=== PATIENT | male | born 1970 | race African-American/Black ===

== ENCOUNTER 2017-06-16 10:01 | Inpatient (IN) | payer MEDICAID ==
[~2017-06-16] VITALS: Ht 172.7 cm; Wt 92.5 kg
[2017-06-16] VITALS (23 sets, daily range): BP systolic 102–125; BP diastolic 49–84
[2017-06-16] MEDS ORDERED: EPINEPHRINE 0.1MG/ML (1:10,000) 10ML SYR ONE ×2 (10:29→10:41)
[2017-06-16] MEDS ORDERED: AMIODARONE HCL 900 MG in DEXT 5% WATER 500 ML IV ONE (10:30)
[2017-06-16] MEDS ORDERED: ASPIRIN 300MG SUPP PR ONE (10:30)
[2017-06-16 10:34] LABS: CHLORIDE 99 mEq/L (98-107)
[2017-06-16 10:42] LABS: CARBON DIOXIDE 15 mEq/L (21-32); TROPONIN I 0.02 ng/mL (0.00-0.04)
[2017-06-16] MEDS ORDERED: KCL 10MEQ/50ML PREMIX 50 ML IV ONE ×2 (10:56→13:15)
[2017-06-16] MEDS ORDERED: FENTANYL CITRATE/PF 50MCG/ML 2ML VIAL ONE (10:57)
[2017-06-16] MEDS ORDERED: VASOPRESSIN 20 UNIT/ML 1ML IV SCH (11:00)
[2017-06-16] MEDS ORDERED: FENTANYL CITRATE/PF 500 MCG in SODIUM CHLORIDE 0.9% 40 ML IV PRN ×3 (11:15→11:45)
[2017-06-16] MEDS ORDERED: MIDAZOLAM HCL 50 MG in DEXTROSE 5% WATER 40 ML IV ONE ×2 (11:15→11:30)
[2017-06-16] MEDS ORDERED: AMIODARONE HCL 50MG/ML 3ML VIAL IV ONE (11:30)
[2017-06-16] MEDS ORDERED: LIDOCAINE HCL 2% 5ML SYRINGE IV ONE (11:30)
[2017-06-16] MEDS ORDERED: MAGNESIUM SULFATE 4G IN WATER 100ML PREMIX IV ONE (11:30)
[2017-06-16] MEDS ORDERED: CALCIUM CHLORIDE 1GM/10ML SYR IV ONE (11:30)
[2017-06-16] MEDS ORDERED: SODIUM BICARBONATE 7.5% 0.9 MEQ/ML 50ML SYR IV ONE (11:30)
[2017-06-16] MEDS ORDERED: MIDAZOLAM HCL 2 MG/2 ML VIAL IV ONE (11:30)
[2017-06-16] MEDS ORDERED: MIDAZOLAM HCL 2 MG/2 ML VIAL ONE (11:33)
[2017-06-16 11:39] LABS: BASOPHILS % 0.5 % (0.0-2.0); EOSINOPHILS % 2.3 % (0.0-5.0); HEMATOCRIT. 42.2 % (42.0-52.0); HEMOGLOBIN. 13.8 g/dL (14.0-18.0); MEAN CORPUSCULAR HEMOGLOBIN 28.2 pg (28.0-32.0); MEAN CORPUSCULAR VOLUME 85.9 fL (80.0-94.0); MEAN PLATELET VOLUME 8.1 fl (7.4-10.4); MONOCYTES % 2.9 % (2.0-8.0); NEUTROPHILS % 61.3 % (40.0-76.0); PLATELET 114 x1000/uL (130-400); RED BLOOD CELL COUNT 4.91 mill/uL (4.7-6.1); RED CELL DISTRIBUTION WIDTH 13.9 % (11.6-14.6)
[2017-06-16] MEDS ORDERED: IPRATROPIUM/ALBUTEROL 0.5-3(2.5)MG/3ML NEB HHN PRN (11:45)
[2017-06-16] MEDS ORDERED: MIDAZOLAM HCL 100 MG in DEXT 5% WATER 80 ML IV PRN (11:45)
[2017-06-16 11:48] LABS: INR 1.3; PROTHROMBIN TIME 13.7 sec (9.4-11.6)
[2017-06-16 12:00] LABS: T4 FREE 0.79 ng/dL (0.76-1.46)
[2017-06-16 12:29] LABS: BG BASE EXCESS -11.4 mmol/L (-2.0-2.0); BG DEOXYHEMOGLOBIN 0.6 % (0.0-5.0); BG FRACTION INSPIRED OXYGEN 100; BG HCO3 ACT 16.3 mmol/L (22.0-26.0); BG METHEMOGLOBIN 0.5 % (0.0-1.5); BG OXYGEN SATURATION 99.4 % (92.0-98.5); BG OXYHEMOGLOBIN 98.9 % (94.0-97.0); BG PCO2 43.2 mmHg (35.0-45.0); BG PH 7.195 (7.350-7.450); BG PO2 354.2 mmHg (75.0-100.0); BG SAMPLE SITE RIGHT RADIAL; BG TIDAL VOLUME(mL) 600 mL; BG VENT MODE VENT - A/C; BG VENT RATE 12 set
[2017-06-16] MEDS ORDERED: FENTANYL CITRATE/PF 50MCG/ML 2ML VIAL IV ONE (13:15)
[2017-06-16 13:29] LABS: D-DIMER > 35.20 mg/L FEU (<0.50)
[2017-06-16] MEDS ORDERED: POTASSIUM CHLORIDE INJ 40 MEQ in DEXT 5% WATER 250 ML IV SCH (13:30)
[2017-06-16] MEDS ORDERED: BLOOD SUGAR DIAGNOSTIC STRIP TEST SCH (13:30)
[2017-06-16] MEDS ORDERED: SODIUM BICARBONATE 8.4% 1 MEQ/ML 50ML SYR IV SCH (13:30)
[2017-06-16] MEDS ORDERED: DEXTROSE 50% WATER 50ML SYRINGE IV PRN ×4 (13:30→14:30)
[2017-06-16] MEDS ORDERED: INSULIN REGULAR (DRIP) 100 UNITS in SODIUM CHLORIDE 0.9% 100 ML IV SCH (14:23)
[2017-06-16 14:38] LABS: CREATINE KINASE MB FRACTION 27.3 ng/mL (0.5-3.6)
[2017-06-16 14:42] LABS: CARCINO EMBRYONIC ANTIGEN 2.4 ng/ml
[2017-06-16 14:44] LABS: PROSTRATE SPECIFIC AG TOTAL 1.69 ng/mL (0.0-4.0)
[2017-06-16] MEDS ORDERED: HEPARIN 5000 UNITS/ML VIAL IV NR (15:00)
[2017-06-16] MEDS: BLOOD SUGAR DIAGNOSTIC STRIP TEST SCH ×8 (15:00→23:57)
[2017-06-16] MEDS ORDERED: HEPARIN 5000 UNITS/ML VIAL IV PRN ×2 (15:00)
[2017-06-16] MEDS: METRONIDAZOLE 500 MG PREMIX 100 ML IV SCH ×2 (15:48→23:57)
[2017-06-16] MEDS: INSULIN REGULAR (DRIP) 100 UNITS in SODIUM CHLORIDE 0.9% 100 ML IV SCH ×2 (15:51→22:36)
[2017-06-16] MEDS: DEXT 5%/0.45% NACL KCL 20MEQ/L 1,000 ML IV SCH (15:54)
[2017-06-16 16:33] LABS: CLARITY URINE CLOUDY (CLEAR); COLOR URINE ORANGE (YELLOW); GLUCOSE URINE 3+ (NEGATIVE); KETONES URINE TRACE (NEGATIVE); LEUKOCYTE ESTERASE URINE NEGATIVE (NEGATIVE); NITRITE URINE NEGATIVE (NEGATIVE); OCCULT BLOOD URINE 3+ (NEGATIVE); PH URINE 5.5 (4.5-8.0); PROTEIN URINE 3+ (NEGATIVE); UROBILINOGEN URINE 0.2 E.U./dL (0.2-1.0)
[2017-06-16 16:34] LABS: BG CARBOXYHEMOGLOBIN 0.4 % (0.5-1.5); BG DEOXYHEMOGLOBIN 2.3 % (0.0-5.0); BG FRACTION INSPIRED OXYGEN 50; BG HCO3 ACT 15.5 mmol/L (22.0-26.0); BG METHEMOGLOBIN 0.2 % (0.0-1.5); BG OXYGEN SATURATION 97.7 % (92.0-98.5); BG OXYHEMOGLOBIN 97.1 % (94.0-97.0); BG PCO2 33.5 mmHg (35.0-45.0); BG PH 7.283 (7.350-7.450); BG PO2 106.2 mmHg (75.0-100.0); BG SAMPLE SITE LEFT RADIAL; BG TIDAL VOLUME(mL) 600 mL; BG TOTAL HEMOGLOBIN 15.3 g/dL (12.0-18.0); BG VENT MODE VENT - A/C; BG VENT RATE 12 set
[2017-06-16 16:46] LABS: *AMPHETAMINES SCREEN URINE NEGATIVE (NEGATIVE); *BARBITURATES SCREEN URINE NEGATIVE (NEGATIVE); *BENZODIAZEPINES SCREEN URINE PRESUMTIVE POSITIVE (NEGATIVE); *COCAINE SCREEN URINE NEGATIVE (NEGATIVE); CANNABINOID URINE SCREEN NEGATIVE (NEGATIVE); METHADONE URINE SCREEN NEGATIVE (NEGATIVE); OPIATES URINE SCREEN NEGATIVE (NEGATIVE); PHENCYCLIDINE URINE SCREEN NEGATIVE (NEGATIVE)
[2017-06-16] MEDS ORDERED: IOHEXOL-350 100 ML BOTTLE ONE (17:40)
[2017-06-16] MEDS: HEPARIN 25,000 UNITS PREMIX 500 ML IV PRN (18:28)
[2017-06-16] MEDS: CEFEPIME 2,000 MG in DEXT 5% WATER 100 ML IV SCH (18:29)
[2017-06-16] MEDS: MIDAZOLAM HCL 100 MG in DEXT 5% WATER 80 ML IV PRN (19:39)
[2017-06-16] MEDS: FENTANYL CITRATE/PF 500 MCG in SODIUM CHLORIDE 0.9% 40 ML IV PRN (19:40)
[2017-06-16 22:55] LABS: CREATINE KINASE MB FRACTION 51.4 ng/mL (0.5-3.6)
[2017-06-17] VITALS (70 sets, daily range): BP systolic 88–125; BP diastolic 50–78
[2017-06-17] MEDS: BLOOD SUGAR DIAGNOSTIC STRIP TEST SCH ×23 (01:00→23:00)
[2017-06-17] MEDS: CEFEPIME 2,000 MG in DEXT 5% WATER 100 ML IV SCH ×2 (04:22→21:24)
[2017-06-17] MEDS: INSULIN REGULAR (DRIP) 100 UNITS in SODIUM CHLORIDE 0.9% 100 ML IV SCH (04:24)
[2017-06-17] MEDS: IPRATROPIUM/ALBUTEROL 0.5-3(2.5)MG/3ML NEB HHN SCH ×4 (04:45→20:03)
[2017-06-17] MEDS: FENTANYL CITRATE/PF 500 MCG in SODIUM CHLORIDE 0.9% 40 ML IV PRN ×2 (06:17→19:47)
[2017-06-17] MEDS: MIDAZOLAM HCL 100 MG in DEXT 5% WATER 80 ML IV PRN ×2 (06:19→21:58)
[2017-06-17] MEDS: METRONIDAZOLE 500 MG PREMIX 100 ML IV SCH ×2 (07:09→20:15)
[2017-06-17 07:15] LABS: CREATINE KINASE MB FRACTION 46.6 ng/mL (0.5-3.6)
[2017-06-17 07:40] LABS: INR 1.3; PROTHROMBIN TIME 13.4 sec (9.4-11.6)
[2017-06-17 07:44] LABS: PARTIAL THROMBOPLASTIN TIME > 200.0 sec (23.4-31.0)
[2017-06-17 08:03] LABS: BG BASE EXCESS -5.1 mmol/L (-2.0-2.0); BG CARBOXYHEMOGLOBIN 0.5 % (0.5-1.5); BG DEOXYHEMOGLOBIN 0.7 % (0.0-5.0); BG FRACTION INSPIRED OXYGEN 50; BG HCO3 ACT 21.2 mmol/L (22.0-26.0); BG METHEMOGLOBIN 0.5 % (0.0-1.5); BG OXYGEN SATURATION 99.3 % (92.0-98.5); BG OXYHEMOGLOBIN 98.3 % (94.0-97.0); BG PCO2 43.8 mmHg (35.0-45.0); BG PH 7.302 (7.350-7.450); BG PO2 183.9 mmHg (75.0-100.0); BG SAMPLE SITE LEFT RADIAL; BG TIDAL VOLUME(mL) 600 mL; BG TOTAL HEMOGLOBIN 14.2 g/dL (12.0-18.0); BG VENT MODE VENT - A/C; BG VENT RATE 12 set
[2017-06-17] MEDS: BUDESONIDE 0.5MG/2ML NEB HHN SCH (08:05)
[2017-06-17] MEDS: DEXT 5%/0.45% NACL KCL 20MEQ/L 1,000 ML IV SCH (08:32)
[2017-06-17] MEDS: PANTOPRAZOLE SODIUM 40 MG/VIAL IV SCH (08:33)
[2017-06-17 09:12] LABS: HEMOGLOBIN. 14.6 g/dL (14.0-18.0); MEAN CORPUSCULAR HEMOGLOBIN 28.3 pg (28.0-32.0); MEAN CORPUSCULAR VOLUME 83.1 fL (80.0-94.0); PLATELET 114 x1000/uL (130-400); RED BLOOD CELL COUNT 5.17 mill/uL (4.7-6.1)
[2017-06-17] MEDS ORDERED: SODIUM BICARBONATE 4% (2.4MEQ) 5ML VIAL IV ONE (09:18)
[2017-06-17] MEDS ORDERED: LIDOCAINE HCL 1% 20ML VIAL (Pyxis) INJ ONE ×2 (09:18→13:54)
[2017-06-17] MEDS ORDERED: HEPARIN 1000 UNITS/ML 10ML ONE (09:19)
[2017-06-17 09:21] LABS: PHOSPHORUS 2.5 mg/dL (2.5-4.9)
[2017-06-17 13:46] LABS: NUCLEATED RED BLOOD CELLS 1 /100 WBC; PLATELET ESTIMATE DECREASED
[2017-06-17] MEDS ORDERED: ALTEPLASE 2MG/VIAL ITC ONE (14:00)
[2017-06-17] MEDS ORDERED: ALTEPLASE 10 MG in SODIUM CHLORIDE 0.9% 250 ML IV SCH ×4 (14:15)
[2017-06-17] MEDS ORDERED: ACETAMINOPHEN 325MG TABLET PO PRN (15:00)
[2017-06-17] MEDS ORDERED: ATROPINE SULFATE 1MG/10ML SYR IV PRN (15:00)
[2017-06-17] MEDS: SODIUM BICARBONATE 100 MEQ in DEXTROSE 5% WATER 1,000 ML IV SCH (16:30)
[2017-06-17 17:20] LABS: HEMATOCRIT 41.2 % (42.0-52.0); HEMOGLOBIN 13.9 g/dL (14.0-18.0)
[2017-06-17] MEDS: AMIODARONE HCL 900 MG in DEXT 5% WATER 482 ML IV PRN (17:36)
[2017-06-17] MEDS: ACETYLCYSTEINE 200MG/ML 20% VIAL 4ML NG SCH (17:54)
[2017-06-17 18:33] LABS: CARBON DIOXIDE 20 mEq/L (21-32); CHLORIDE 109 mEq/L (98-107)
[2017-06-17 18:47] LABS: CLARITY URINE CLOUDY (CLEAR); COLOR URINE RED (YELLOW); GLUCOSE URINE TRACE (NEGATIVE); KETONES URINE NEGATIVE (NEGATIVE); LEUKOCYTE ESTERASE URINE 1+ (NEGATIVE); NITRITE URINE NEGATIVE (NEGATIVE); OCCULT BLOOD URINE 3+ (NEGATIVE); PH URINE 6.5 (4.5-8.0); PROTEIN URINE 2+ (NEGATIVE); SPECIFIC GRAVITY URINE 1.017 (1.005-1.030); UROBILINOGEN URINE 0.2 E.U./dL (0.2-1.0)
[2017-06-18] VITALS (93 sets, daily range): BP systolic 61–138; BP diastolic 32–71
[2017-06-18] MEDS: BLOOD SUGAR DIAGNOSTIC STRIP TEST SCH ×10 (00:57→17:50)
[2017-06-18] MEDS: INSULIN REGULAR (DRIP) 100 UNITS in SODIUM CHLORIDE 0.9% 100 ML IV SCH (01:03)
[2017-06-18] MEDS: IPRATROPIUM/ALBUTEROL 0.5-3(2.5)MG/3ML NEB HHN SCH ×4 (01:38→20:15)
[2017-06-18] MEDS: BUDESONIDE 0.5MG/2ML NEB HHN SCH ×3 (01:38→20:16)
[2017-06-18] MEDS: FENTANYL CITRATE/PF 500 MCG in SODIUM CHLORIDE 0.9% 40 ML IV PRN ×3 (02:16→19:42)
[2017-06-18] MEDS: METRONIDAZOLE 500 MG PREMIX 100 ML IV SCH ×3 (04:24→21:23)
[2017-06-18] MEDS: HEPARIN 25,000 UNITS PREMIX 500 ML IV PRN (04:57)
[2017-06-18 05:50] LABS: BASOPHILS % 0.4 % (0.0-2.0); EOSINOPHILS % 0.6 % (0.0-5.0); HEMATOCRIT. 36.1 % (42.0-52.0); HEMOGLOBIN. 12.4 g/dL (14.0-18.0); LYMPHOCYTES % 12.8 % (20.0-50.0); MEAN CORPUSCULAR VOLUME 81.6 fL (80.0-94.0); MEAN PLATELET VOLUME 8.2 fl (7.4-10.4); MONOCYTES % 9.1 % (2.0-8.0); NEUTROPHILS % 77.1 % (40.0-76.0); PLATELET 101 x1000/uL (130-400); RED BLOOD CELL COUNT 4.42 mill/uL (4.7-6.1); RED CELL DISTRIBUTION WIDTH 14.2 % (11.6-14.6)
[2017-06-18 06:49] LABS: CHLORIDE 110 mEq/L (98-107)
[2017-06-18 07:21] LABS: CARBON DIOXIDE 22 mEq/L (21-32)
[2017-06-18 07:27] LABS: PHOSPHORUS 3.9 mg/dL (2.5-4.9)
[2017-06-18 07:31] LABS: CREATINE KINASE 2119 IU/L (39-308)
[2017-06-18] MEDS: SODIUM BICARBONATE 100 MEQ in DEXTROSE 5% WATER 1,000 ML IV SCH ×2 (07:50→23:07)
[2017-06-18] MEDS: PANTOPRAZOLE SODIUM 40 MG/VIAL IV SCH (08:34)
[2017-06-18] MEDS: MIDAZOLAM HCL 100 MG in DEXT 5% WATER 80 ML IV PRN ×2 (08:37→21:25)
[2017-06-18] MEDS: ACETYLCYSTEINE 200MG/ML 20% VIAL 4ML NG SCH ×2 (08:48→21:48)
[2017-06-18] MEDS ORDERED: DEXTROSE 50% WATER 50ML SYRINGE IV PRN (11:15)
[2017-06-18] MEDS: INSULIN LISPRO 100 UNITS/ML SUBCUT SCH ×4 (12:00→18:03)
[2017-06-18 12:01] LABS: HEPATITIS B SURFACE ANTIGEN NEGATIVE
[2017-06-18 12:28] LABS: HEPATITIS B CORE AB IGM NEGATIVE
[2017-06-18 12:29] LABS: HEPATITIS A AB IGM NEGATIVE (NEGATIVE)
[2017-06-18] MEDS: AMIODARONE HCL 900 MG in DEXT 5% WATER 482 ML IV PRN (21:24)
[2017-06-18] MEDS: CEFEPIME 2,000 MG in DEXT 5% WATER 100 ML IV SCH (21:48)
[2017-06-19] VITALS (90 sets, daily range): BP systolic 100–180; BP diastolic 49–75
[2017-06-19] MEDS: INSULIN LISPRO 100 UNITS/ML SUBCUT SCH ×10 (00:05→18:01)
[2017-06-19] MEDS: BLOOD SUGAR DIAGNOSTIC STRIP TEST SCH ×10 (00:05→17:57)
[2017-06-19] MEDS: IPRATROPIUM/ALBUTEROL 0.5-3(2.5)MG/3ML NEB HHN SCH ×4 (01:42→20:03)
[2017-06-19] MEDS: FENTANYL CITRATE/PF 500 MCG in SODIUM CHLORIDE 0.9% 40 ML IV PRN ×3 (02:01→17:04)
[2017-06-19] MEDS: HEPARIN 25,000 UNITS PREMIX 500 ML IV PRN (03:21)
[2017-06-19] MEDS: METRONIDAZOLE 500 MG PREMIX 100 ML IV SCH ×3 (03:22→19:49)
[2017-06-19 04:25] LABS: EOSINOPHILS % 2.2 % (0.0-5.0); HEMATOCRIT. 33.6 % (42.0-52.0); HEMOGLOBIN. 11.4 g/dL (14.0-18.0); LYMPHOCYTES % 14.7 % (20.0-50.0); MEAN CORPUSCULAR HEMOGLOBIN 27.9 pg (28.0-32.0); MEAN CORPUSCULAR VOLUME 82.2 fL (80.0-94.0); MEAN PLATELET VOLUME 7.9 fl (7.4-10.4); MONOCYTES % 10.3 % (2.0-8.0); NEUTROPHILS % 71.8 % (40.0-76.0); PLATELET 111 x1000/uL (130-400); RED BLOOD CELL COUNT 4.08 mill/uL (4.7-6.1); RED CELL DISTRIBUTION WIDTH 14.3 % (11.6-14.6)
[2017-06-19 04:37] LABS: PHOSPHORUS 3.3 mg/dL (2.5-4.9)
[2017-06-19 07:26] LABS: BG BASE EXCESS 1.5 mmol/L (-2.0-2.0); BG CARBOXYHEMOGLOBIN 0.3 % (0.5-1.5); BG DEOXYHEMOGLOBIN 1.1 % (0.0-5.0); BG FRACTION INSPIRED OXYGEN 50; BG METHEMOGLOBIN 0.4 % (0.0-1.5); BG OXYGEN SATURATION 98.9 % (92.0-98.5); BG OXYHEMOGLOBIN 98.2 % (94.0-97.0); BG PCO2 40.7 mmHg (35.0-45.0); BG PH 7.424 (7.350-7.450); BG SAMPLE SITE RIGHT RADIAL; BG TIDAL VOLUME(mL) 600 mL; BG TOTAL HEMOGLOBIN 11.7 g/dL (12.0-18.0); BG VENT MODE VENT - A/C; BG VENT RATE 12 set
[2017-06-19] MEDS: PANTOPRAZOLE SODIUM 40 MG/VIAL IV SCH (08:07)
[2017-06-19] MEDS: BUDESONIDE 0.5MG/2ML NEB HHN SCH (08:08)
[2017-06-19] MEDS: ACETYLCYSTEINE 200MG/ML 20% VIAL 4ML NG SCH ×2 (10:03→20:58)
[2017-06-19] MEDS: INSULIN DETEMIR UD 100 UNITS/ML SYR SUBCUT SCH (10:08)
[2017-06-19] MEDS: MIDAZOLAM HCL 100 MG in DEXT 5% WATER 80 ML IV PRN ×2 (10:36→20:57)
[2017-06-19] MEDS: SODIUM BICARBONATE 100 MEQ in DEXTROSE 5% WATER 1,000 ML IV SCH (14:17)
[2017-06-19] MEDS: CEFEPIME 2,000 MG in DEXT 5% WATER 100 ML IV SCH (20:56)
[2017-06-19] MEDS: AMIODARONE HCL 900 MG in DEXT 5% WATER 482 ML IV PRN (20:58)
[2017-06-20] VITALS (91 sets, daily range): BP systolic 106–144; BP diastolic 46–88
[2017-06-20] MEDS: INSULIN LISPRO 100 UNITS/ML SUBCUT SCH ×10 (01:01→18:18)
[2017-06-20] MEDS: FENTANYL CITRATE/PF 500 MCG in SODIUM CHLORIDE 0.9% 40 ML IV PRN ×2 (01:02→08:44)
[2017-06-20] MEDS: IPRATROPIUM/ALBUTEROL 0.5-3(2.5)MG/3ML NEB HHN SCH ×4 (01:43→20:19)
[2017-06-20] MEDS: BLOOD SUGAR DIAGNOSTIC STRIP TEST SCH ×10 (02:07→18:14)
[2017-06-20] MEDS: HEPARIN 25,000 UNITS PREMIX 500 ML IV PRN (02:15)
[2017-06-20] MEDS: METRONIDAZOLE 500 MG PREMIX 100 ML IV SCH ×3 (04:28→20:19)
[2017-06-20] MEDS: SODIUM BICARBONATE 100 MEQ in DEXTROSE 5% WATER 1,000 ML IV SCH (05:38)
[2017-06-20 06:06] LABS: BASOPHILS % 0.5 % (0.0-2.0); HEMATOCRIT. 32.9 % (42.0-52.0); HEMOGLOBIN. 11.4 g/dL (14.0-18.0); LYMPHOCYTES % 14.7 % (20.0-50.0); MEAN CORPUSCULAR HEMOGLOBIN 28.4 pg (28.0-32.0); MEAN CORPUSCULAR VOLUME 81.7 fL (80.0-94.0); MEAN PLATELET VOLUME 7.9 fl (7.4-10.4); MONOCYTES % 11.2 % (2.0-8.0); NEUTROPHILS % 68.6 % (40.0-76.0); PLATELET 148 x1000/uL (130-400); RED BLOOD CELL COUNT 4.03 mill/uL (4.7-6.1); RED CELL DISTRIBUTION WIDTH 14.2 % (11.6-14.6)
[2017-06-20 06:35] LABS: PHOSPHORUS 3.1 mg/dL (2.5-4.9)
[2017-06-20] MEDS: PANTOPRAZOLE SODIUM 40 MG/VIAL IV SCH (08:22)
[2017-06-20] MEDS: MIDAZOLAM HCL 100 MG in DEXT 5% WATER 80 ML IV PRN (08:25)
[2017-06-20 08:41] LABS: BG BASE EXCESS 4.4 mmol/L (-2.0-2.0); BG CARBOXYHEMOGLOBIN 0.3 % (0.5-1.5); BG DEOXYHEMOGLOBIN 2.4 % (0.0-5.0); BG FRACTION INSPIRED OXYGEN 35; BG HCO3 ACT 28.9 mmol/L (22.0-26.0); BG METHEMOGLOBIN 0.3 % (0.0-1.5); BG OXYGEN SATURATION 97.6 % (92.0-98.5); BG PCO2 42.9 mmHg (35.0-45.0); BG PH 7.447 (7.350-7.450); BG PO2 107.8 mmHg (75.0-100.0); BG SAMPLE SITE RIGHT RADIAL; BG TIDAL VOLUME(mL) 600 mL; BG TOTAL HEMOGLOBIN 11.8 g/dL (12.0-18.0); BG VENT MODE VENT - A/C; BG VENT RATE 12 set
[2017-06-20 09:51] LABS: BG BASE EXCESS 5.1 mmol/L (-2.0-2.0); BG DEOXYHEMOGLOBIN 2.7 % (0.0-5.0); BG FRACTION INSPIRED OXYGEN 35; BG HCO3 ACT 30.1 mmol/L (22.0-26.0); BG METHEMOGLOBIN 0.1 % (0.0-1.5); BG OXYGEN SATURATION 97.3 % (92.0-98.5); BG OXYHEMOGLOBIN 97.2 % (94.0-97.0); BG PH 7.434 (7.350-7.450); BG PO2 99.2 mmHg (75.0-100.0); BG PRESSURE SUPPORT 8; BG SAMPLE SITE LEFT RADIAL; BG TOTAL HEMOGLOBIN 11.9 g/dL (12.0-18.0); BG VENT MODE VENT - CPAP
[2017-06-20] MEDS: INSULIN DETEMIR UD 100 UNITS/ML SYR SUBCUT SCH (10:15)
[2017-06-20] MEDS: ACETYLCYSTEINE 200MG/ML 20% VIAL 4ML NG SCH ×2 (10:16→21:34)
[2017-06-20] MEDS ORDERED: DEXT 5%/0.45% NACL 1000ML 1,000 ML IV SCH (13:15)
[2017-06-20] MEDS: RIVAROXABAN 15 MG TABLET PO SCH (16:27)
[2017-06-20] MEDS: CEFEPIME 2,000 MG in DEXT 5% WATER 100 ML IV SCH (20:19)
[2017-06-21] VITALS (65 sets, daily range): BP systolic 111–151; BP diastolic 53–96
[2017-06-21] MEDS: INSULIN LISPRO 100 UNITS/ML SUBCUT SCH ×8 (00:18→21:59)
[2017-06-21] MEDS: BLOOD SUGAR DIAGNOSTIC STRIP TEST SCH ×8 (00:18→21:00)
[2017-06-21] MEDS: IPRATROPIUM/ALBUTEROL 0.5-3(2.5)MG/3ML NEB HHN SCH ×4 (01:48→20:03)
[2017-06-21] MEDS: AMIODARONE HCL 900 MG in DEXT 5% WATER 482 ML IV PRN (02:15)
[2017-06-21] MEDS: METRONIDAZOLE 500 MG PREMIX 100 ML IV SCH ×3 (04:11→20:42)
[2017-06-21 06:00] LABS: BASOPHILS % 0.7 % (0.0-2.0); EOSINOPHILS % 3.5 % (0.0-5.0); HEMOGLOBIN. 11.6 g/dL (14.0-18.0); LYMPHOCYTES % 10.3 % (20.0-50.0); MEAN CORPUSCULAR VOLUME 82.3 fL (80.0-94.0); MEAN PLATELET VOLUME 7.6 fl (7.4-10.4); MONOCYTES % 13.9 % (2.0-8.0); NEUTROPHILS % 71.6 % (40.0-76.0); PLATELET 184 x1000/uL (130-400); RED BLOOD CELL COUNT 4.13 mill/uL (4.7-6.1); RED CELL DISTRIBUTION WIDTH 14.3 % (11.6-14.6)
[2017-06-21] MEDS: RIVAROXABAN 15 MG TABLET PO SCH ×2 (06:29→17:33)
[2017-06-21 07:31] LABS: PHOSPHORUS 3.3 mg/dL (2.5-4.9)
[2017-06-21] MEDS: PANTOPRAZOLE SODIUM 40 MG/VIAL IV SCH (07:57)
[2017-06-21] MEDS: ACETYLCYSTEINE 200MG/ML 20% VIAL 4ML NG SCH (08:35)
[2017-06-21] MEDS: INSULIN DETEMIR UD 100 UNITS/ML SYR SUBCUT SCH (11:57)
[2017-06-21] MEDS ORDERED: DEXTROSE 50% WATER 50ML SYRINGE IV PRN (20:00)
[2017-06-21] MEDS: CEFEPIME 2,000 MG in DEXT 5% WATER 100 ML IV SCH (20:42)
[2017-06-22] VITALS (48 sets, daily range): BP systolic 112–141; BP diastolic 47–101
[2017-06-22] MEDS: METRONIDAZOLE 500 MG PREMIX 100 ML IV SCH ×3 (04:42→20:08)
[2017-06-22 05:29] LABS: BASOPHILS % 0.6 % (0.0-2.0); EOSINOPHILS % 3.9 % (0.0-5.0); HEMATOCRIT. 33.7 % (42.0-52.0); HEMOGLOBIN. 11.5 g/dL (14.0-18.0); LYMPHOCYTES % 13.8 % (20.0-50.0); MEAN CORPUSCULAR HEMOGLOBIN 28.1 pg (28.0-32.0); MEAN CORPUSCULAR VOLUME 82.4 fL (80.0-94.0); MEAN PLATELET VOLUME 7.6 fl (7.4-10.4); MONOCYTES % 12.6 % (2.0-8.0); NEUTROPHILS % 69.1 % (40.0-76.0); PLATELET 207 x1000/uL (130-400); RED BLOOD CELL COUNT 4.09 mill/uL (4.7-6.1); RED CELL DISTRIBUTION WIDTH 13.8 % (11.6-14.6)
[2017-06-22] MEDS: BLOOD SUGAR DIAGNOSTIC STRIP TEST SCH ×4 (06:16→21:00)
[2017-06-22] MEDS: RIVAROXABAN 15 MG TABLET PO SCH ×2 (06:16→17:56)
[2017-06-22] MEDS: INSULIN LISPRO 100 UNITS/ML SUBCUT SCH ×4 (06:18→21:00)
[2017-06-22] MEDS: MORPHINE SULFATE 4 MG/ML CPJ (NOT FOR IM USE) IV PRN ×3 (07:45→21:10)
[2017-06-22] MEDS: IPRATROPIUM/ALBUTEROL 0.5-3(2.5)MG/3ML NEB HHN SCH ×3 (08:50→20:30)
[2017-06-22] MEDS: PANTOPRAZOLE SODIUM 40 MG/VIAL IV SCH (09:37)
[2017-06-22] MEDS: INSULIN DETEMIR UD 100 UNITS/ML SYR SUBCUT SCH (09:39)
[2017-06-22] MEDS ORDERED: KCL 20MEQ/100ML PREMIX 100 ML IV NR (10:00)
[2017-06-22 10:14] LABS: BG BASE EXCESS 2.2 mmol/L (-2.0-2.0); BG CARBOXYHEMOGLOBIN 0.6 % (0.5-1.5); BG DEOXYHEMOGLOBIN 13.6 % (0.0-5.0); BG FRACTION INSPIRED OXYGEN 21; BG METHEMOGLOBIN 0.3 % (0.0-1.5); BG OXYGEN SATURATION 86.3 % (92.0-98.5); BG OXYHEMOGLOBIN 85.5 % (94.0-97.0); BG PCO2 33.2 mmHg (35.0-45.0); BG PH 7.495 (7.350-7.450); BG PO2 48.9 mmHg (75.0-100.0); BG SAMPLE SITE RIGHT BRACHIAL; BG TOTAL HEMOGLOBIN 12.3 g/dL (12.0-18.0); BG VENT MODE ROOM AIR
[2017-06-22] MEDS: DIPHENHYDRAMINE 50MG/ML VIAL IV PRN ×2 (15:20→21:09)
[2017-06-22] MEDS: CEFEPIME 2,000 MG in DEXT 5% WATER 100 ML IV SCH (20:08)
[2017-06-23] VITALS (37 sets, daily range): BP systolic 95–145; BP diastolic 50–89
[2017-06-23] MEDS: IPRATROPIUM/ALBUTEROL 0.5-3(2.5)MG/3ML NEB HHN SCH ×4 (00:25→21:32)
[2017-06-23] MEDS: METRONIDAZOLE 500 MG PREMIX 100 ML IV SCH ×3 (03:40→20:52)
[2017-06-23] MEDS ORDERED: DOCUSATE SODIUM 100MG CAPSULE PO SCH (03:45)
[2017-06-23 06:00] LABS: HEMATOCRIT 33.3 % (42.0-52.0); MEAN CORPUSCULAR HEMOGLOBIN 27.3 pg (28.0-32.0); MEAN CORPUSCULAR VOLUME 82.5 fL (80.0-94.0); PLATELET 251 x1000/uL (130-400); RED BLOOD CELL COUNT 4.04 mill/uL (4.7-6.1); RED CELL DISTRIBUTION WIDTH 13.8 % (11.6-14.6)
[2017-06-23] MEDS: BLOOD SUGAR DIAGNOSTIC STRIP TEST SCH ×4 (06:40→20:52)
[2017-06-23] MEDS: INSULIN LISPRO 100 UNITS/ML SUBCUT SCH ×4 (06:41→21:04)
[2017-06-23 06:46] LABS: CHLORIDE 105 mEq/L (98-107)
[2017-06-23 07:23] LABS: CARBON DIOXIDE 25 mEq/L (21-32)
[2017-06-23] MEDS: RIVAROXABAN 15 MG TABLET PO SCH ×2 (07:34→17:36)
[2017-06-23] MEDS: PANTOPRAZOLE SODIUM 40 MG/VIAL IV SCH (09:00)
[2017-06-23] MEDS: DOCUSATE SODIUM 100MG CAPSULE PO SCH ×2 (09:01→17:36)
[2017-06-23] MEDS: INSULIN DETEMIR UD 100 UNITS/ML SYR SUBCUT SCH (10:20)
[2017-06-23] MEDS: MORPHINE SULFATE 4 MG/ML CPJ (NOT FOR IM USE) IV PRN ×2 (14:35→23:55)
[2017-06-23] MEDS: CEFEPIME 2,000 MG in DEXT 5% WATER 100 ML IV SCH ×2 (17:20→23:50)
[2017-06-23] MEDS: DIPHENHYDRAMINE 50MG/ML VIAL IV PRN (20:49)
[2017-06-24] VITALS (11 sets, daily range): BP systolic 114–148; BP diastolic 64–86
[2017-06-24] MEDS: IPRATROPIUM/ALBUTEROL 0.5-3(2.5)MG/3ML NEB HHN SCH ×3 (00:29→14:30)
[2017-06-24 06:25] LABS: BASOPHILS % 0.8 % (0.0-2.0); HEMATOCRIT. 32.2 % (42.0-52.0); HEMOGLOBIN. 10.9 g/dL (14.0-18.0); MEAN CORPUSCULAR HEMOGLOBIN 27.6 pg (28.0-32.0); MEAN CORPUSCULAR VOLUME 81.1 fL (80.0-94.0); MEAN PLATELET VOLUME 7.2 fl (7.4-10.4); NEUTROPHILS % 66.2 % (40.0-76.0); PLATELET 307 x1000/uL (130-400); RED BLOOD CELL COUNT 3.97 mill/uL (4.7-6.1); RED CELL DISTRIBUTION WIDTH 13.7 % (11.6-14.6)
[2017-06-24 06:51] LABS: CARBON DIOXIDE 25 mEq/L (21-32); CHLORIDE 105 mEq/L (98-107); PHOSPHORUS 2.4 mg/dL (2.5-4.9)
[2017-06-24] MEDS: BLOOD SUGAR DIAGNOSTIC STRIP TEST SCH ×3 (08:17→17:08)
[2017-06-24] MEDS: INSULIN LISPRO 100 UNITS/ML SUBCUT SCH ×3 (08:23→17:19)
[2017-06-24] MEDS: PANTOPRAZOLE SODIUM 40 MG/VIAL IV SCH (08:24)
[2017-06-24] MEDS: DOCUSATE SODIUM 100MG CAPSULE PO SCH ×2 (08:24→17:35)
[2017-06-24] MEDS: RIVAROXABAN 15 MG TABLET PO SCH ×2 (08:24→17:35)
[2017-06-24] MEDS: CEFEPIME 2,000 MG in DEXT 5% WATER 100 ML IV SCH ×2 (08:24→17:08)
[2017-06-24] MEDS ORDERED: SODIUM PHOS,M-BASIC-D-BASIC 15 MM in DEXT 5% WATER 245 ML IV NR (09:30)
[2017-06-24] MEDS: INSULIN DETEMIR UD 100 UNITS/ML SYR SUBCUT SCH (09:42)
[2017-06-24] MEDS ORDERED: XAR15 GT (18:30)
[2017-06-24] MEDS ORDERED: INSLIS SUBCUT (18:30)
[2017-06-24] MEDS ORDERED: INSU100I28 SQ (18:30)
== END 2017-06-24 21:26 | disposition home or self-care (01) | DRG 130 ==
LOC: ER 10:11 → EDBEDREQ 11:18 → ENRESERV 11:42 → MICUSO 11:43 → EDBEDREQ 11:46 → MICUSO 06-21 14:18 → 5EST 06-23 13:50
PROVIDERS: ADMIT Internal Medicine; ATTEND Internal Medicine
PROC: 5A1955Z Respiratory Ventilation, Greater than 96 Consecutive Hours (ICD-10-PCS; principal; 2017-06-16)
PROC: 02HV33Z Insertion of Infusion Device into Superior Vena Cava, Percutaneous Approach (ICD-10-PCS; 2017-06-16)
PROC: 0BH17EZ Insertion of Endotracheal Airway into Trachea, Via Natural or Artificial Opening (ICD-10-PCS; 2017-06-16)
PROC: 3E06317 Introduction of Other Thrombolytic into Central Artery, Percutaneous Approach (ICD-10-PCS; 2017-06-17)
PROC: 4A023N6 Measurement of Cardiac Sampling and Pressure, Right Heart, Percutaneous Approach (ICD-10-PCS; 2017-06-17)
DX: I26.02 Saddle embolus of pulmonary artery with acute cor pulmonale (principal); N17.0 Acute kidney failure with tubular necrosis; I46.9 Cardiac arrest, cause unspecified; J69.0 Pneumonitis due to inhalation of food and vomit; E87.4 Mixed disorder of acid-base balance; E87.2 Acidosis; I95.9 Hypotension, unspecified; D68.59 Other primary thrombophilia; J96.01 Acute respiratory failure with hypoxia; I47.2 Ventricular tachycardia; R65.10 Systemic inflammatory response syndrome (SIRS) of non-infectious origin without acute organ dysfunction; M62.82 Rhabdomyolysis; E66.01 Morbid (severe) obesity due to excess calories; N18.9 Chronic kidney disease, unspecified; E87.6 Hypokalemia; E11.21 Type 2 diabetes mellitus with diabetic nephropathy; E11.65 Type 2 diabetes mellitus with hyperglycemia; E78.5 Hyperlipidemia, unspecified; I45.10 Unspecified right bundle-branch block; R31.9 Hematuria, unspecified; I12.9 Hypertensive chronic kidney disease with stage 1 through stage 4 chronic kidney disease, or unspecified chronic kidney disease; D72.829 Elevated white blood cell count, unspecified; F31.9 Bipolar disorder, unspecified; J45.909 Unspecified asthma, uncomplicated; N40.0 Benign prostatic hyperplasia without lower urinary tract symptoms; Z79.4 Long term (current) use of insulin; Z82.49 Family history of ischemic heart disease and other diseases of the circulatory system; Z85.46 Personal history of malignant neoplasm of prostate; Z86.718 Personal history of other venous thrombosis and embolism; Z68.31 Body mass index [BMI] 31.0-31.9, adult
CPT/HCPCS: 31500; 36415; 36556; 36600; 37211; 70450; 71010; 71275; 76770; 78580; 80048; 80053; 80061; 80305; 81001; 82105; 82375; 82378; 82550; 82553; 82805; 82962; 83036; 83735; 83880; 84100; 84153; 84439; 84443; 84484; 85007; 85014; 85018; 85025; 85027; 85379; 85384; 85610; 85730; 86703; 86705; 86709; 86803; 87040; 87070; 87086; 87340; 87502; 92610; 93005; 93306; 93970; 94002; 94003; 94640; 97110; 97116; 97163; 97167; 97530; 99291; A6261; C1769; C1893; C9113; J0171; J0282; J0692; J1200; J1644; J1815; J2250; J2270; J2997; J3010; J3475; J3480; J3490; J7030; J7050; J7060; J7070; J7608; J7620; J7626; Q9967; A4315

== ENCOUNTER 2017-07-06 13:51 | Emergency (ER) | payer MEDICAID ==
[~2017-07-06] VITALS: Ht 182.9 cm; Wt 97.0 kg
[~2017-07-06 13:51] MED LIST: INSLIS SUBCUT; INSU100I28 SQ; XAR15 GT
[2017-07-06 20:55] VITALS: BP 128/79
== END 2017-07-06 20:59 | disposition home or self-care (01) ==
LOC: ER 14:18
DX: R19.09 Other intra-abdominal and pelvic swelling, mass and lump (principal); L90.5 Scar conditions and fibrosis of skin; I10 Essential (primary) hypertension; E11.9 Type 2 diabetes mellitus without complications; F31.9 Bipolar disorder, unspecified; Z86.718 Personal history of other venous thrombosis and embolism; Z79.01 Long term (current) use of anticoagulants; Z79.4 Long term (current) use of insulin
CPT/HCPCS: 99283

== ENCOUNTER 2018-01-13 11:36 | Emergency (ER) | payer MEDICAID ==
[~2018-01-13] VITALS: Ht 182.9 cm; Wt 89.0 kg
[2018-01-13] MEDS ORDERED: ONDANSETRON HCL 4MG/2ML VIAL IV STA (12:04)
[2018-01-13] MEDS ORDERED: SODIUM CHLORIDE 0.9% 1,000 ML IV ONE (12:04)
[2018-01-13] MEDS ORDERED: FAMOTIDINE 20MG/2ML VIAL IV STA (12:04)
[2018-01-13] MEDS ORDERED: KETOROLAC 30MG/ML VIAL IV ONE (12:15)
[2018-01-13 12:22] LABS: BASOPHILS % 0.6 % (0.0-2.0); EOSINOPHILS % 2.1 % (0.0-5.0); HEMATOCRIT. 41.4 % (42.0-52.0); HEMOGLOBIN. 14.4 g/dL (14.0-18.0); MEAN CORPUSCULAR HEMOGLOBIN 28.5 pg (28.0-32.0); MEAN CORPUSCULAR VOLUME 81.7 fL (80.0-94.0); MEAN PLATELET VOLUME 7.5 fl (7.4-10.4); MONOCYTES % 7.8 % (2.0-8.0); NEUTROPHILS % 59.5 % (40.0-76.0); PLATELET 251 x1000/uL (130-400); RED BLOOD CELL COUNT 5.06 mill/uL (4.7-6.1); RED CELL DISTRIBUTION WIDTH 13.3 % (11.6-14.6)
[2018-01-13 12:28] LABS: CHLORIDE 97 mEq/L (98-107)
[2018-01-13 12:30] LABS: INR 1.1; PARTIAL THROMBOPLASTIN TIME 29.6 sec (23.4-31.0)
[2018-01-13 17:31] VITALS: BP 127/79
== END 2018-01-13 17:35 | disposition home or self-care (01) ==
LOC: ER 12:20
DX: K80.20 Calculus of gallbladder without cholecystitis without obstruction (principal); E11.9 Type 2 diabetes mellitus without complications; F31.9 Bipolar disorder, unspecified; I11.0 Hypertensive heart disease with heart failure; I50.9 Heart failure, unspecified; Z86.711 Personal history of pulmonary embolism; Z98.890 Other specified postprocedural states; Z86.718 Personal history of other venous thrombosis and embolism; Z79.4 Long term (current) use of insulin
CPT/HCPCS: 36415; 76705; 80053; 83690; 85025; 85610; 85730; 96361; 96374; 96375; 99285; J1885; J2405; J3490; J7030; Z7610

== ENCOUNTER 2018-02-07 14:03 | Emergency (ER) | payer MEDICAID ==
[~2018-02-07] VITALS: Ht 182.9 cm; Wt 89.0 kg
[2018-02-07 15:47] VITALS: BP 111/83
== END 2018-02-07 15:49 | disposition home or self-care (01) ==
LOC: ER 14:16
DX: I82.409 Acute embolism and thrombosis of unspecified deep veins of unspecified lower extremity (principal); E11.9 Type 2 diabetes mellitus without complications; I10 Essential (primary) hypertension; Z86.711 Personal history of pulmonary embolism; Z76.0 Encounter for issue of repeat prescription
CPT/HCPCS: 99283

== ENCOUNTER 2018-03-26 17:58 | Emergency (ER) | payer MEDICAID ==
[~2018-03-26] VITALS: Ht 182.9 cm; Wt 88.0 kg
[2018-03-26 18:07] VITALS: BP 122/73
== END 2018-03-26 19:04 | disposition home or self-care (01) ==
LOC: ER 17:58
DX: I82.591 Chronic embolism and thrombosis of other specified deep vein of right lower extremity (principal); E11.9 Type 2 diabetes mellitus without complications; I10 Essential (primary) hypertension; Z79.4 Long term (current) use of insulin; Z76.0 Encounter for issue of repeat prescription
CPT/HCPCS: 99283

== ENCOUNTER 2018-04-04 10:11 | Emergency (ER) | payer MEDICAID ==
[~2018-04-04] VITALS: Ht 182.9 cm; Wt 90.0 kg
[2018-04-04 10:23] VITALS: BP 115/78
== END 2018-04-04 12:00 | disposition home or self-care (01) ==
LOC: ER 10:11
DX: I82.402 Acute embolism and thrombosis of unspecified deep veins of left lower extremity (principal); E11.9 Type 2 diabetes mellitus without complications; I10 Essential (primary) hypertension; Z86.718 Personal history of other venous thrombosis and embolism; Z79.4 Long term (current) use of insulin; Z76.0 Encounter for issue of repeat prescription
CPT/HCPCS: 99283

== ENCOUNTER 2018-09-08 21:51 | Emergency (ER) | payer MEDICAID ==
[~2018-09-08] VITALS: Ht 182.9 cm; Wt 86.7 kg
[2018-09-08 22:42] VITALS: BP 125/82
== END 2018-09-09 01:48 | disposition left against medical advice (07) ==
LOC: ER 21:51
DX: Z53.21 Procedure and treatment not carried out due to patient leaving prior to being seen by health care provider (principal)
CPT/HCPCS: 82962

== ENCOUNTER 2019-02-04 12:04 | Emergency (ER) | payer MEDICAID ==
[~2019-02-04] VITALS: Ht 182.9 cm; Wt 88.0 kg
[2019-02-04] MEDS ORDERED: SODIUM CHLORIDE 0.9% 1,000 ML IV ONE ×2 (13:10→13:45)
[2019-02-04 13:23] LABS: BASOPHILS % 0.9 % (0.0-2.0); EOSINOPHILS % 4.5 % (0.0-5.0); HEMATOCRIT. 42.2 % (42.0-52.0); HEMOGLOBIN. 14.7 g/dL (14.0-18.0); LYMPHOCYTES % 44.3 % (20.0-50.0); MEAN CORPUSCULAR HEMOGLOBIN 28.4 pg (28.0-32.0); MEAN CORPUSCULAR VOLUME 81.7 fL (80.0-94.0); MEAN PLATELET VOLUME 7.4 fl (7.4-10.4); MONOCYTES % 9.6 % (2.0-8.0); NEUTROPHILS % 40.7 % (40.0-76.0); PLATELET 216 x1000/uL (130-400); RED BLOOD CELL COUNT 5.17 mill/uL (4.7-6.1); RED CELL DISTRIBUTION WIDTH 13.8 % (11.6-14.6)
[2019-02-04 13:30] LABS: INR 1.2; PROTHROMBIN TIME 12.3 sec (9.6-11.0)
[2019-02-04 13:31] LABS: CHLORIDE 104 mEq/L (98-107)
[2019-02-04 15:05] LABS: CLARITY URINE CLEAR (CLEAR); COLOR URINE YELLOW (YELLOW); KETONES URINE NEGATIVE (NEGATIVE); LEUKOCYTE ESTERASE URINE NEGATIVE (NEGATIVE); NITRITE URINE NEGATIVE (NEGATIVE); OCCULT BLOOD URINE NEGATIVE (NEGATIVE); PROTEIN URINE NEGATIVE (NEGATIVE); SPECIFIC GRAVITY URINE 1.021 (1.005-1.030)
[2019-02-04 18:00] VITALS: BP 116/85
== END 2019-02-04 18:10 | disposition home or self-care (01) ==
LOC: ER 12:56
DX: E11.649 Type 2 diabetes mellitus with hypoglycemia without coma (principal); R55 Syncope and collapse; I10 Essential (primary) hypertension; Z79.4 Long term (current) use of insulin; Z79.899 Other long term (current) drug therapy
CPT/HCPCS: 36415; 71045; 80053; 81003; 82962; 83605; 84484; 85025; 85610; 93005; 96360; 96361; 99284; J7030

== ENCOUNTER 2019-05-16 19:41 | Emergency (ER) | payer MEDICAID ==
[~2019-05-16] VITALS: Ht 185.4 cm; Wt 90.0 kg
[~2019-05-16 19:41] MED LIST changes: -XAR15 GT; +XAR15 PO
[2019-05-16] MEDS ORDERED: SODIUM CHLORIDE 0.9% 500 ML IV ONE (21:30)
[2019-05-16] MEDS ORDERED: ONDANSETRON HCL 4MG/2ML INJ IV ONE (21:30)
[2019-05-16 21:55] LABS: BASOPHILS % 1.2 % (0.0-2.0); EOSINOPHILS % 6.1 % (0.0-5.0); HEMATOCRIT. 41.7 % (42.0-52.0); HEMOGLOBIN. 14.6 g/dL (14.0-18.0); LYMPHOCYTES % 40.5 % (20.0-50.0); MEAN CORPUSCULAR HEMOGLOBIN 28.7 pg (28.0-32.0); MEAN CORPUSCULAR VOLUME 82.1 fL (80.0-94.0); MEAN PLATELET VOLUME 7.2 fl (7.4-10.4); MONOCYTES % 9.9 % (2.0-8.0); NEUTROPHILS % 42.3 % (40.0-76.0); PLATELET 232 x1000/uL (130-400); RED BLOOD CELL COUNT 5.09 mill/uL (4.7-6.1); RED CELL DISTRIBUTION WIDTH 14.1 % (11.6-14.6)
[2019-05-16 22:00] LABS: CHLORIDE 105 mEq/L (98-107)
[2019-05-16 22:15] LABS: INR 1.1; PROTHROMBIN TIME 11.6 sec (9.6-11.0)
[2019-05-17] MEDS ORDERED: IOHEXOL-350 100 ML BOTTLE ONE (01:20)
[2019-05-17 01:58] VITALS: BP 105/75
== END 2019-05-17 02:11 | disposition home or self-care (01) ==
LOC: ER 19:41
DX: R07.89 Other chest pain (principal); E11.9 Type 2 diabetes mellitus without complications; J45.909 Unspecified asthma, uncomplicated; Z79.4 Long term (current) use of insulin; Z86.711 Personal history of pulmonary embolism; Z79.01 Long term (current) use of anticoagulants
CPT/HCPCS: 36415; 71045; 71275; 80053; 82962; 83880; 84484; 85025; 85610; 93005; 96361; 96374; 99284; J2405; J7040; Q9967

== ENCOUNTER 2019-06-25 20:58 | Inpatient (IN) | payer MEDICAID ==
[~2019-06-25] VITALS: Ht 180.3 cm; Wt 91.2 kg
[2019-06-25 21:50] LABS: BASOPHILS % 1.3 % (0.0-2.0); EOSINOPHILS % 4.8 % (0.0-5.0); HEMATOCRIT. 42.4 % (42.0-52.0); HEMOGLOBIN. 14.6 g/dL (14.0-18.0); LYMPHOCYTES % 48.3 % (20.0-50.0); MEAN CORPUSCULAR HEMOGLOBIN 28.5 pg (28.0-32.0); MEAN CORPUSCULAR VOLUME 82.5 fL (80.0-94.0); MEAN PLATELET VOLUME 7.4 fl (7.4-10.4); MONOCYTES % 10.8 % (2.0-8.0); NEUTROPHILS % 34.8 % (40.0-76.0); PLATELET 220 x1000/uL (130-400); RED BLOOD CELL COUNT 5.13 mill/uL (4.7-6.1); RED CELL DISTRIBUTION WIDTH 14.1 % (11.6-14.6)
[2019-06-25 21:52] LABS: CHLORIDE 109 mEq/L (98-107)
[2019-06-26 04:00] VITALS: BP 117/84
[2019-06-26 04:42] VITALS: BP 117/84
[2019-06-26] MEDS ORDERED: HYDROCODONE/ACETAMINOPHEN 5/325MG TABLET PO PRN (06:15)
[2019-06-26] MEDS ORDERED: DEXTROSE 50% WATER 50ML SYRINGE IV PRN (06:15)
[2019-06-26] MEDS: BLOOD SUGAR DIAGNOSTIC STRIP TEST SCH ×3 (07:18→17:42)
[2019-06-26] MEDS: NITROGLYCERIN OINT 1GM/INCH UDPKT TD SCH ×2 (07:24→15:03)
[2019-06-26 08:00] VITALS: BP 106/66
[2019-06-26] MEDS: INSULIN LISPRO 100 UNITS/ML SUBCUT SCH ×3 (08:10→17:43)
[2019-06-26] MEDS ORDERED: METOPROLOL TARTRATE 25MG TABLET PO SCH (09:00)
[2019-06-26] MEDS ORDERED: ASPIRIN 325MG TABLET PO SCH (09:00)
[2019-06-26] MEDS: RIVAROXABAN 15 MG TABLET PO SCH ×2 (09:18→18:10)
[2019-06-26] MEDS ORDERED: INSULIN GLARGINE UD 100 UNITS/ML SYR SUBCUT SCH (10:00)
[2019-06-26 10:16] LABS: BASOPHILS % 1.1 % (0.0-2.0); EOSINOPHILS % 4.6 % (0.0-5.0); HEMATOCRIT. 40.3 % (42.0-52.0); LYMPHOCYTES % 49.7 % (20.0-50.0); MEAN CORPUSCULAR HEMOGLOBIN 28.6 pg (28.0-32.0); MEAN CORPUSCULAR VOLUME 82.1 fL (80.0-94.0); MEAN PLATELET VOLUME 7.4 fl (7.4-10.4); MONOCYTES % 10.7 % (2.0-8.0); NEUTROPHILS % 33.9 % (40.0-76.0); PLATELET 201 x1000/uL (130-400); RED BLOOD CELL COUNT 4.91 mill/uL (4.7-6.1); RED CELL DISTRIBUTION WIDTH 13.9 % (11.6-14.6)
[2019-06-26 10:26] LABS: CHLORIDE 107 mEq/L (98-107)
[2019-06-26 10:34] LABS: LDL CHOLESTEROL 99 mg/dL (5-100)
[2019-06-26 10:35] LABS: HDL CHOLESTEROL 38 mg/dL (40-59)
[2019-06-26 12:00] VITALS: BP 114/50
[2019-06-26] MEDS ORDERED: GUAIFENESIN-DM 200MG-20MG/10ML UDC PO PRN (12:00)
[2019-06-26] MEDS ORDERED: BUDESONIDE 0.5MG/2ML NEB HHN SCH (12:00)
[2019-06-26] MEDS ORDERED: IPRATROPIUM/ALBUTEROL 0.5-3(2.5)MG/3ML NEB HHN PRN (12:00)
[2019-06-26 12:06] LABS: CLARITY URINE CLEAR (CLEAR); COLOR URINE YELLOW (YELLOW); KETONES URINE NEGATIVE (NEGATIVE); LEUKOCYTE ESTERASE URINE NEGATIVE (NEGATIVE); NITRITE URINE NEGATIVE (NEGATIVE); OCCULT BLOOD URINE NEGATIVE (NEGATIVE); PH URINE 5.5 (4.5-8.0); PROTEIN URINE NEGATIVE (NEGATIVE)
[2019-06-26 12:36] LABS: *AMPHETAMINES SCREEN URINE NEGATIVE (NEGATIVE); *BARBITURATES SCREEN URINE NEGATIVE (NEGATIVE)
[2019-06-26 12:37] LABS: *BENZODIAZEPINES SCREEN URINE NEGATIVE (NEGATIVE); *COCAINE SCREEN URINE NEGATIVE (NEGATIVE); CANNABINOID URINE SCREEN NEGATIVE (NEGATIVE); METHADONE URINE SCREEN NEGATIVE (NEGATIVE); OPIATES URINE SCREEN NEGATIVE (NEGATIVE); PHENCYCLIDINE URINE SCREEN NEGATIVE (NEGATIVE)
[2019-06-26] MEDS ORDERED: NON FORMULARY PATIENT HOME MED XX SCH (12:45)
[2019-06-26 16:00] VITALS: BP 99/48
[2019-06-26 20:00] VITALS: BP 104/63
[2019-06-30] MEDS ORDERED: SEMAGLUTIDE SUBCUT SCH (09:00)
== END 2019-06-26 21:35 | disposition left against medical advice (07) | DRG 203 ==
LOC: ER 21:18 → 7WST 23:33 → ENRESERV 06-26 03:45
PROVIDERS: ADMIT Internal Medicine; ATTEND Internal Medicine
DX: M94.0 Chondrocostal junction syndrome [Tietze] (principal); G90.8 Other disorders of autonomic nervous system; E11.9 Type 2 diabetes mellitus without complications; I10 Essential (primary) hypertension; J45.909 Unspecified asthma, uncomplicated; Z86.711 Personal history of pulmonary embolism; Z86.718 Personal history of other venous thrombosis and embolism; Z79.01 Long term (current) use of anticoagulants; Z79.4 Long term (current) use of insulin
CPT/HCPCS: 36415; 71045; 80048; 80061; 80305; 81003; 82962; 83036; 83880; 84484; 93005; 93306; 99285; J1815; J7626

== ENCOUNTER 2019-10-25 10:51 | Emergency (ER) | payer MEDICAID ==
[~2019-10-25] VITALS: Ht 185.4 cm; Wt 98.0 kg
[2019-10-25] MEDS ORDERED: VISCOUS LIDOCAINE 2% 15 ML UDC MM NR (13:36)
[2019-10-25] MEDS ORDERED: FAMOTIDINE 20MG TABLET PO NR (13:45)
[2019-10-25] MEDS ORDERED: HYDROCODONE/ACETAMINOPHEN 10/325MG TABLET PO NR (13:45)
[2019-10-25] MEDS ORDERED: ONDANSETRON 4MG ODT PO NR (13:45)
[2019-10-25] MEDS ORDERED: MAGNESIUM/ALUMINUM HYDROXIDE/SIMETHICONE 30ML UDC PO NR (13:45)
[2019-10-25 13:55] LABS: BASOPHILS % 0.9 % (0.0-2.0); EOSINOPHILS % 2.8 % (0.0-5.0); HEMATOCRIT. 43.4 % (42.0-52.0); HEMOGLOBIN. 15.2 g/dL (14.0-18.0); LYMPHOCYTES % 33.2 % (20.0-50.0); MEAN CORPUSCULAR HEMOGLOBIN 28.4 pg (28.0-32.0); MEAN CORPUSCULAR VOLUME 81.2 fL (80.0-94.0); MEAN PLATELET VOLUME 7.5 fl (7.4-10.4); MONOCYTES % 8.4 % (2.0-8.0); NEUTROPHILS % 54.7 % (40.0-76.0); PLATELET 237 x1000/uL (130-400); RED BLOOD CELL COUNT 5.34 mill/uL (4.7-6.1); RED CELL DISTRIBUTION WIDTH 13.6 % (11.6-14.6)
[2019-10-25 14:03] LABS: CHLORIDE 103 mEq/L (98-107); INR 1.1; PROTHROMBIN TIME 11.4 sec (9.6-11.0)
[2019-10-25 14:33] LABS: CLARITY URINE CLEAR (CLEAR); COLOR URINE YELLOW (YELLOW); KETONES URINE NEGATIVE (NEGATIVE); LEUKOCYTE ESTERASE URINE NEGATIVE (NEGATIVE); NITRITE URINE NEGATIVE (NEGATIVE); OCCULT BLOOD URINE NEGATIVE (NEGATIVE); PH URINE 6.5 (4.5-8.0); PROTEIN URINE 1+ (NEGATIVE); SPECIFIC GRAVITY URINE 1.027 (1.005-1.030)
[2019-10-25 15:42] VITALS: BP 130/79
== END 2019-10-25 15:45 | disposition home or self-care (01) ==
LOC: ER 10:51
DX: K80.20 Calculus of gallbladder without cholecystitis without obstruction (principal); E11.9 Type 2 diabetes mellitus without complications; I10 Essential (primary) hypertension; J45.909 Unspecified asthma, uncomplicated; Z86.711 Personal history of pulmonary embolism; Z86.718 Personal history of other venous thrombosis and embolism; Z79.01 Long term (current) use of anticoagulants; Z79.4 Long term (current) use of insulin
CPT/HCPCS: 36415; 74176; 80053; 81003; 83690; 85025; 85610; 99284; Q0162

== ENCOUNTER 2021-03-24 10:50 | Emergency (ER) | payer MEDICAID ==
[~2021-03-24] VITALS: Ht 182.9 cm; Wt 88.0 kg
[2021-03-24 10:57] VITALS: BP 127/89
[2021-03-24] MEDS ORDERED: LIDOCAINE HCL/EPINEPHRINE 1%-EPI 1:100,000 20 ML VIAL INFIL ONE (12:30)
[2021-03-24] MEDS ORDERED: BACITRACIN ZINC OINT UDPKT TOP ONE (12:30)
[2021-03-24] MEDS ORDERED: TETANUS, DIPHTHERIA, PERTUSSIS VAC/PF 0.5ML (>7YR OLD) IM ONE (13:00)
[2021-03-24] MEDS ORDERED: CEPH500T PO (14:03)
[2021-03-24] MEDS ORDERED: ACET-2708 PO (14:03)
== END 2021-03-24 14:32 | disposition home or self-care (01) ==
LOC: ER 10:50
DX: S91.312A Laceration without foreign body, left foot, initial encounter (principal); I10 Essential (primary) hypertension; E11.9 Type 2 diabetes mellitus without complications; X58.XXXA Exposure to other specified factors, initial encounter; Y93.89 Activity, other specified; Y92.89 Other specified places as the place of occurrence of the external cause; Y99.8 Other external cause status
CPT/HCPCS: 12001; 73630; 99283

== ENCOUNTER 2021-04-20 14:04 | Emergency (ER) | payer MEDICAID ==
[~2021-04-20] VITALS: Ht 182.9 cm; Wt 86.0 kg
[~2021-04-20 14:04] MED LIST changes: +ACET-2708 PO; +CEPH500T PO
[2021-04-20 14:09] VITALS: BP 126/75
== END 2021-04-20 21:00 | disposition left against medical advice (07) ==
LOC: ER 14:04
DX: Z53.21 Procedure and treatment not carried out due to patient leaving prior to being seen by health care provider (principal)

== ENCOUNTER 2022-01-30 13:22 | Emergency (ER) | payer MEDICAID, OTHER ==
[~2022-01-30] VITALS: Ht 182.9 cm; Wt 87.0 kg
[2022-01-30 14:22] VITALS: BP 105/65
== END 2022-01-30 20:02 | disposition left against medical advice (07) ==
LOC: ER 13:22
DX: Z53.21 Procedure and treatment not carried out due to patient leaving prior to being seen by health care provider (principal)

== ENCOUNTER 2022-06-08 12:50 | Emergency (ER) | payer MEDICAID, OTHER ==
[~2022-06-08] VITALS: Ht 175.3 cm; Wt 100.0 kg
[2022-06-08] MEDS ORDERED: IBUPROFEN 400MG TABLET PO ONE (15:45)
[2022-06-08] MEDS ORDERED: AMOXICILLIN/POTASSIUM CLAVULANATE 875/125MG TAB PO ONE (15:45)
[2022-06-08 15:51] VITALS: BP 141/85
[2022-06-08] MEDS ORDERED: AMOX1TAB16 MT (16:36)
[2022-06-08] MEDS ORDERED: INSLIS SUBCUT (16:36)
== END 2022-06-08 16:50 | disposition home or self-care (01) ==
LOC: ER 12:50
DX: R60.9 Edema, unspecified (principal); E11.9 Type 2 diabetes mellitus without complications; I10 Essential (primary) hypertension; E78.00 Pure hypercholesterolemia, unspecified; J45.909 Unspecified asthma, uncomplicated; Z76.0 Encounter for issue of repeat prescription
CPT/HCPCS: 99283

== ENCOUNTER 2023-04-30 01:12 | Emergency (ER) | payer BC, MEDICAID ==
[~2023-04-30] VITALS: Ht 182.9 cm; Wt 93.0 kg
[~2023-04-30 01:12] MED LIST changes: +AMOX1TAB16 MT
[2023-04-30 01:20] VITALS: BP 163/95; O2SAT 99
[2023-04-30 02:12] VITALS: PULSE 100; RESP 16; TEMP 98.7
== END 2023-04-30 02:21 | disposition home or self-care (01) ==
LOC: ER 01:12
DX: I89.0 Lymphedema, not elsewhere classified (principal); E11.9 Type 2 diabetes mellitus without complications; I10 Essential (primary) hypertension; E78.00 Pure hypercholesterolemia, unspecified; J45.909 Unspecified asthma, uncomplicated
CPT/HCPCS: 99281

== ENCOUNTER 2025-03-22 16:38 | Emergency (ER) | payer MEDICAID ==
[~2025-03-22] VITALS: Ht 182.9 cm; Wt 77.0 kg
[~2025-03-22 16:38] MED LIST changes: +AMLO10TA80 PO; +AMOX1TAB16 PO; +ATOR40TA70 PO; +INSU100I32 SQ; +LISI10TA26 PO; +RIVA20TA MT; +RIVA20TA PO
[2025-03-22 16:40] VITALS: BP 115/88; TEMP 37.1; O2SAT 99
[2025-03-22 16:44] VITALS: PULSE 109; RESP 20; O2SAT 98
[2025-03-22 17:12] LABS: PLATELET 251 x1000/uL (130-400); RED BLOOD CELL COUNT 4.15 mill/uL (4.7-6.1); RED CELL DISTRIBUTION WIDTH 14.5 % (11.6-14.6)
[2025-03-22 17:26] LABS: UREA NITROGEN BLOOD 27.0 mg/dL (9-23)
[2025-03-22 17:27] LABS: CREATININE 2.3 mg/dL (0.6-1.3)
[2025-03-22 19:13] LABS: TROPONIN I HIGH SENSITIVITY 9 ng/L (3.0-53)
[2025-03-22 19:15] LABS: ASPARTATE AMINOTRANSFERASE 19 IU/L (<34); BILIRUBIN DIRECT < 0.1 mg/dL (<=3.0); BILIRUBIN TOTAL 0.2 mg/dL (0.1-1.0); PROTEIN TOTAL 6.5 g/dL (6.0-8.3)
[2025-03-22 22:01] LABS: TROPONIN I HIGH SENSITIVITY 8 ng/L (3.0-53)
[2025-03-22 22:42] LABS: CLARITY URINE CLEAR (CLEAR); COLOR URINE YELLOW (YELLOW); GLUCOSE URINE TRACE (NEGATIVE); KETONES URINE NEGATIVE (NEGATIVE); LEUKOCYTE ESTERASE URINE NEGATIVE (NEGATIVE); NITRITE URINE NEGATIVE (NEGATIVE); OCCULT BLOOD URINE TRACE (NEGATIVE); PH URINE 6.0 (4.5-8.0); PROTEIN URINE 4+ (NEGATIVE); SPECIFIC GRAVITY URINE 1.017 (1.005-1.030); UROBILINOGEN URINE 1.0 E.U./dL (0.2-1.0)
[2025-03-22 22:56] LABS: BACTERIA URINE 1+; RBC URINE 0-2 /hpf (0-2); SQUAMOUS EPITHELIAL CELL URINE RARE /lpf (RARE/1+); WBC URINE 0-2 /hpf (0-2)
== END 2025-03-23 00:27 | disposition home or self-care (01) ==
LOC: ER 16:38
DX: I95.9 Hypotension, unspecified (principal); E11.9 Type 2 diabetes mellitus without complications; I49.9 Cardiac arrhythmia, unspecified; E78.00 Pure hypercholesterolemia, unspecified; Z79.4 Long term (current) use of insulin; Z79.899 Other long term (current) drug therapy
CPT/HCPCS: 36415; 71045; 80048; 80076; 81003; 84484; 85027; 93005; 99285

== ENCOUNTER 2025-05-17 19:39 | Inpatient (IN) | payer BC, MEDICAID ==
[~2025-05-17] VITALS: Ht 180.3 cm; Wt 84.0 kg
[2025-05-17 19:45] VITALS: O2SAT 97
[2025-05-17 20:13] LABS: BASOPHILS % 1.3 % (0.0-2.0); EOSINOPHILS % 3.7 % (0.0-5.0); HEMATOCRIT. 32.2 % (42.0-52.0); HEMOGLOBIN. 11.0 g/dL (14.0-18.0); LYMPHOCYTES % 28.9 % (20.0-50.0); MEAN PLATELET VOLUME 6.9 fl (7.4-10.4); MONOCYTES % 6.2 % (2.0-8.0); NEUTROPHILS % 59.9 % (40.0-76.0); PLATELET 287 x1000/uL (130-400); RED BLOOD CELL COUNT 4.07 mill/uL (4.7-6.1); RED CELL DISTRIBUTION WIDTH 15.4 % (11.6-14.6)
[2025-05-17] MEDS: ONDANSETRON HCL 4MG/2ML INJ IV ONE (20:19)
[2025-05-17] MEDS: SODIUM CHLORIDE 0.9% 1,000 ML IV ONE (20:19)
[2025-05-17 20:24] LABS: INR 1.0
[2025-05-17 20:31] LABS: CREATININE 2.6 mg/dL (0.6-1.3)
[2025-05-17 20:32] LABS: TROPONIN I HIGH SENSITIVITY 14 ng/L (3.0-53); UREA NITROGEN BLOOD 20 mg/dL (9-23)
[2025-05-17 20:33] LABS: ASPARTATE AMINOTRANSFERASE 21 IU/L (<34)
[2025-05-17 20:34] LABS: BILIRUBIN DIRECT 0.2 mg/dL (<=3.0); BILIRUBIN TOTAL 0.5 mg/dL (0.1-1.0); PROTEIN TOTAL 6.2 g/dL (6.0-8.3)
[2025-05-17] MEDS: FAMOTIDINE 20MG TABLET PO ONE (21:45)
[2025-05-17] MEDS: MAGNESIUM/ALUMINUM HYDROXIDE/SIMETHICONE 30ML UDC PO ONE (21:45)
[2025-05-17 22:12] LABS: TROPONIN I HIGH SENSITIVITY 11 ng/L (3.0-53)
[2025-05-17] MEDS: METRONIDAZOLE 500 MG PREMIX 100 ML IV ONE (23:00)
[2025-05-17] MEDS: LABETALOL 5MG/ML 4ML INJ IV ONE (23:01)
[2025-05-17] MEDS: CEFTRIAXONE 2GM/50ML 50 ML IV ONE (23:06)
[2025-05-17 23:43] VITALS: BP 198/116; PULSE 95; RESP 18; TEMP 36.4736
[2025-05-18] MEDS ORDERED: DOCUSATE SODIUM 100MG CAPSULE PO PRN (01:00)
[2025-05-18] MEDS ORDERED: IPRATROPIUM/ALBUTEROL 0.5-3(2.5)MG/3ML NEB HHN PRN (01:00)
[2025-05-18] MEDS ORDERED: HYDRALAZINE 20MG/ML VIAL IV PRN (01:00)
[2025-05-18] MEDS ORDERED: ONDANSETRON HCL 4MG/2ML INJ IV PRN (01:00)
[2025-05-18] MEDS ORDERED: DEXTROSE 50% WATER 50ML SYRINGE IV PRN (01:00)
[2025-05-18] MEDS ORDERED: GUAIFENESIN 200MG/10ML SUGAR FREE UDC PO PRN (01:00)
[2025-05-18] MEDS ORDERED: ACETAMINOPHEN 325MG TABLET PO PRN ×2 (01:00)
[2025-05-18] MEDS: HYDRALAZINE 10 MG in SODIUM CHLORIDE 0.9% 49.5 ML IV PRN (01:43)
[2025-05-18] MEDS: AMLODIPINE 10MG TABLET PO SCH (02:49)
[2025-05-18] MEDS: CLONIDINE 0.1MG TABLET PO PRN (02:49)
[2025-05-18] MEDS: NITROGLYCERIN 0.2MG/HR PATCH TOP NR (03:46)
[2025-05-18 05:30] VITALS: BP 128/75; PULSE 85; RESP 18; TEMP 36.6; O2SAT 100
[2025-05-18] MEDS: BLOOD SUGAR DIAGNOSTIC STRIP TEST SCH (06:35)
[2025-05-18 06:42] LABS: CLARITY URINE CLEAR (CLEAR); COLOR URINE YELLOW (YELLOW); GLUCOSE URINE TRACE (NEGATIVE); KETONES URINE NEGATIVE (NEGATIVE); LEUKOCYTE ESTERASE URINE NEGATIVE (NEGATIVE); NITRITE URINE NEGATIVE (NEGATIVE); OCCULT BLOOD URINE 1+ (NEGATIVE); PH URINE 6.5 (4.5-8.0); PROTEIN URINE 4+ (NEGATIVE); SPECIFIC GRAVITY URINE 1.019 (1.005-1.030); UROBILINOGEN URINE 1.0 E.U./dL (0.2-1.0)
[2025-05-18 06:57] LABS: WBC URINE 0-2 /hpf (0-2)
[2025-05-18 06:58] LABS: BACTERIA URINE NONE SEEN; SQUAMOUS EPITHELIAL CELL URINE NONE SEEN /lpf (RARE/1+)
[2025-05-18 07:00] LABS: HYALINE CASTS URINE 0-5 /lpf
[2025-05-18 07:04] LABS: *AMPHETAMINES SCREEN URINE NEGATIVE (NEGATIVE); *BARBITURATES SCREEN URINE NEGATIVE (NEGATIVE); *BENZODIAZEPINES SCREEN URINE NEGATIVE (NEGATIVE); *COCAINE SCREEN URINE NEGATIVE (NEGATIVE)
[2025-05-18 07:05] LABS: CANNABINOID URINE SCREEN NEGATIVE (NEGATIVE); ECSTASY MDMA SCREEN URINE NEGATIVE (NEGATIVE); METHADONE URINE SCREEN NEGATIVE (NEGATIVE); OPIATES URINE SCREEN NEGATIVE (NEGATIVE); PHENCYCLIDINE URINE SCREEN NEGATIVE (NEGATIVE)
[2025-05-18] MEDS: INSULIN LISPRO 100 UNITS/ML SUBCUT SCH (07:39)
[2025-05-18 08:00] VITALS: BP_SYST 117; BP_SYST 123; BP_SYST 177; BP_DIAS 61; BP_DIAS 75; BP_DIAS 77; PULSE 105; PULSE 85; PULSE 87; RESP 18; RESP 20; TEMP 36.6; O2SAT 100; O2SAT 95
[2025-05-18] MEDS: LISINOPRIL 10MG TABLET PO SCH (08:59)
[2025-05-18 12:00] VITALS: BP 111/63; PULSE 87; RESP 18; TEMP 36.4; O2SAT 100
[2025-05-18 16:00] VITALS: BP 130/78; PULSE 82; RESP 20; TEMP 36.5; O2SAT 100
[2025-05-18 16:41] VITALS: BP 122/77; PULSE 87; RESP 18; TEMP 97.9
[2025-05-18] MEDS: RIVAROXABAN 20 MG TABLET PO SCH (17:00)
[2025-05-19 06:44] LABS: VITAMIN B12 SERUM 426 pg/mL (211-911)
[2025-05-22 15:07] LABS: FOLATE HEMOLYSATE 228.0 ng/mL (Not Estab.)
[2025-05-24 09:11] LABS: FOLATE HEMATOCRIT 27.5 % (37.5-51.0); FOLATE RBC 829 ng/mL (>498)
== END 2025-05-18 17:20 | disposition home or self-care (01) | DRG 199 ==
LOC: ER 19:46 → 6EST 22:48 → EDBEDREQTM 22:51 → EDBEDREQ 22:51 → 7WST 05-18 05:23
PROVIDERS: ADMIT Internal Medicine; ATTEND Internal Medicine
DX: I16.1 Hypertensive emergency (principal); K80.62 Calculus of gallbladder and bile duct with acute cholecystitis without obstruction; I24.9 Acute ischemic heart disease, unspecified; N17.9 Acute kidney failure, unspecified; D64.9 Anemia, unspecified; E11.22 Type 2 diabetes mellitus with diabetic chronic kidney disease; E78.00 Pure hypercholesterolemia, unspecified; F32.A Depression, unspecified; I12.9 Hypertensive chronic kidney disease with stage 1 through stage 4 chronic kidney disease, or unspecified chronic kidney disease; F41.9 Anxiety disorder, unspecified; J45.909 Unspecified asthma, uncomplicated; K76.0 Fatty (change of) liver, not elsewhere classified; N18.9 Chronic kidney disease, unspecified; Z86.711 Personal history of pulmonary embolism; Z86.718 Personal history of other venous thrombosis and embolism
CPT/HCPCS: 36415; 71045; 74176; 76700; 80048; 80076; 80305; 80320; 81003; 82607; 82747; 83036; 83540; 83550; 83735; 84484; 85014; 85025; 85379; 93005; 99291; A4606; J0696; J2405; J3490; J7030; G0480